=== PATIENT | female | born 1990 | race Caucasian/White ===

== ENCOUNTER 2020-03-07 06:46 | Day surgery (SDC) | payer BC ==
[~2020-03-07 06:46] MED LIST: BACITRACIN 50,000 UNIT VIAL IR ONE; CELECOXIB 200 MG CAP PO NR; GABAPENTIN 300 MG CAP PO NR; LACTATED RINGERS 1,000 ML IV SCH; MAGNESIUM OXIDE 400 MG TAB PO SCH; MIDAZOLAM 2 MG/2 ML INJ IV NR; SODIUM CHLORIDE 0.9% IRR 1,500 ML BOTTLE IR ONE; VANCOMYCIN/NS 1 GM/250 ML 1 GM/250 ML BAG IV NR
[2020-03-07] MEDS ORDERED: VANCOMYCIN 1,500 MG in SODIUM CHLORIDE 0.9% 500 ML 500 ML IV SCH (08:30)
--- NOTE | 2020-03-07 08:49 | Anesthesia Consultation ---
Anesthesia Consult and Med Hx Date of service: 03/07/20 - Airway Anesthetic Teeth Evaluation: Good ROM Head & Neck: Adequate Mental/Hyoid Distance: Adequate Mallampati Class: Class I Intubation Access Assessment: Good - Pulmonary Exam CTA: Yes - Cardiac Exam Cardiac Exam: RRR - Pre-Operative Health Status ASA Pre-Surgery Classification: ASA2 Proposed Anesthetic Plan: General - Pulmonary Hx Smoking: No Hx Respiratory Symptoms: No - Cardiovascular System Hx Hypertension: No Hx Heart Attack/AMI: No - Central Nervous System CVA: No Hx Back Pain: Yes - Gastrointestinal Hx Gastroesophageal Reflux Disease: No - Endocrine Hx Renal Disease: No Hx Liver Disease: No Hx Insulin Dependent Diabetes: No Hx Non-Insulin Dependent Diabetes: No Hx Thyroid Disease: No - Other Systems Hx Alcohol Use: Yes Hx Obesity: Yes (BMI 39) - Additional Comments Anesthesia Medical History Comments: No hx anesthetic complications.
--- NOTE | 2020-03-07 08:49 | Anesthesia Day of Surgery ---
Anesthesia Day of Surgery - Day of Surgery Patient Examined: Yes Patient H&P Reviewed: Yes Patient is NPO: Yes
[2020-03-07] MEDS: SCOPOLAMINE TRANSDERMAL PATCH 72 HR TD NR ×2 (09:18→18:45)
[2020-03-07] MEDS ORDERED: BACITRACIN 50,000 UNIT VIAL ONE (12:17)
[2020-03-07] MEDS ORDERED: LIDOCAINE 1%/EPINEPHRINE 1:100,000 VIAL (20 ML) INFILTRATI ONE ×2 (12:17→13:15)
[2020-03-07] MEDS ORDERED: SODIUM CHLORIDE P/F VIAL 10 ML 10 ML ONE (12:18)
[2020-03-07] MEDS ORDERED: ROCURONIUM 50 MG/5 ML INJ IV ONE (12:20)
[2020-03-07] MEDS ORDERED: LIDOCAINE MPF (2%) 20 MG/1 ML VIAL 5 ML ONE (12:20)
[2020-03-07] MEDS ORDERED: propofoL 200 MG/20 ML VIAL IV ONE (12:20)
[2020-03-07] MEDS ORDERED: fentaNYL 100 MCG/2 ML INJ ONE (12:20)
[2020-03-07] MEDS ORDERED: dexAMETHasone 20 MG/5 ML VIAL ONE (13:17)
[2020-03-07] MEDS ORDERED: ONDANSETRON 4 MG/2 ML INJ ONE ×2 (13:18→18:46)
[2020-03-07] MEDS ORDERED: HYDROmorphone 1 MG/1 ML INJ ONE (13:19)
[2020-03-07] MEDS ORDERED: LACTATED RINGERS 1,000 ML ONE (14:11)
[2020-03-07] MEDS ORDERED: BACITRACIN 50,000 UNIT VIAL IR ONE (14:37)
[2020-03-07] MEDS ORDERED: SODIUM CHLORIDE 0.9% IRR 1,500 ML BOTTLE IR ONE (14:37)
[2020-03-07] MEDS ORDERED: NEOSTIGMINE 10MG/10 ML INJ MDV ONE (17:25)
[2020-03-07] MEDS ORDERED: GLYCOPYRROLATE 0.4 MG/2 ML INJ ONE (17:25)
[2020-03-07] MEDS: HYDROmorphone 1 MG/1 ML INJ IV PRN ×4 (17:50→18:20)
[2020-03-07] MEDS ORDERED: SCOPOLAMINE TRANSDERMAL PATCH 72 HR TD ONE (18:36)
[2020-03-07] MEDS ORDERED: ALBUMIN HUMAN 5% (25 GM/500 ML) INJ IV ONE (18:44)
[2020-03-07] MEDS ORDERED: ONDANSETRON 4 MG/2 ML INJ IV PRN (18:47)
--- NOTE | 2020-03-07 19:23 | Operative Report ---
Operative Report Operative Report: Preoperative Diagnosis: Symptomatic bilateral macromastia Post Operative Diagnosis: Same Procedure: Bilateral breast reduction Surgeon: Dr. Lorna Vega Spring Fitter Helper: VIKASH Last Anesthesia: General Specimens: Right and left breast tissue, excised EBL: 150cc Indications: This patient is a 29 year old female who presented with musculoskeletal complaints due to her large breasts. She was approved for breast reduction to alleviate her symptoms. The benefits and risks of surgery were discussed in detail with the patient who expressed her understanding. Informed consent was obtained. Procedure: After review of pertinent history and physical exam findings the patient was marked in preop holding and brought into the operating room and placed supine on the OR table. After induction of adequate general anesthesia the patient's chest was prepped and draped in the usual sterile surgical fashion. To begin, wright were refreshed and measurements double checked and we reduced the right breast as follows: A 9cm inferior pedicle was outlined and de-epithelialized save the nipple and areola complex, which was measured out using a 4.5cm diameter and left completely attached to the inferior pedicle. After this, following a Joseph pattern, skin incisions were made to elevate breast flaps superiorly and excise excess tissue on the medial and lateral aspect of the pedicle. Hemostasis was maintained with electrocautery. Saline solution with bacitracin was then used to irrigate the breast tissue and, satisfied with hemostasis and volume, we began to a 3-layered closure using 2-0 Monocryl and 3- 0 Monoderm sutures. The same procedure was performed on the left side, with tissue re-arrangement and excision based on an inferior pedicle being performed to preserve the nipple areolar complex and as much breast tissue as possible for symmetry. Tissue excised: 1.2kg right breast; 1.28kg on the left. Once all incisions were closed, they were sealed with Dermabond and dressed with Telfa and tegaderm dressings. This was followed by placement of a surgical bra. The patient was then awakened from general anesthesia and transferred to PACU in stable condition. There were no complications. All sponge needle and instrument counts were correct at the end of the case.
[2020-03-07 19:44] VITALS: BP 105/65
== END 2020-03-07 20:30 | disposition home or self-care (01) ==
LOC: OR 06:46
PROVIDERS: ATTEND Plastic Surgery
DX: N62 Hypertrophy of breast (principal); E66.9 Obesity, unspecified; Z72.89 Other problems related to lifestyle; Z88.0 Allergy status to penicillin; Z83.3 Family history of diabetes mellitus; Z80.3 Family history of malignant neoplasm of breast; Z68.39 Body mass index [BMI] 39.0-39.9, adult
CPT/HCPCS: 19318; 81025; 88305; J1100; J1170; J2250; J2405; J2704; J2710; J3010; J3370; J7040; J7120; P9045

== ENCOUNTER 2020-06-07 19:14 | Emergency (ER) | payer SELFPAY ==
[2020-06-07 20:01] VITALS: BP 129/78
== END 2020-06-07 20:05 | disposition left against medical advice (07) ==
LOC: ED 19:14
DX: R50.9 Fever, unspecified (principal); Z53.21 Procedure and treatment not carried out due to patient leaving prior to being seen by health care provider

== ENCOUNTER 2020-06-21 06:18 | Emergency (ER) | payer MEDICAID ==
--- NOTE | 2020-06-21 08:36 | XRay Report ---
LEFT ANKLE 3 VIEWS INDICATION: injury. COMPARISON: None. IMPRESSION: There is diffuse soft tissue swelling. No acute osseous injury or joint pathology is de tected. Small plantar spur is noted. Signer Name: Crescencio Sommer Jr, MD Signed: 06/21/2020 8:32 AM Workstation Name: [id number]
[2020-06-21] MEDS ORDERED: IBUPROFEN 800 MG TAB PO ONE (08:43)
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
[2020-06-21 19:02] VITALS: BP 108/60
== END 2020-06-21 09:52 | disposition home or self-care (01) ==
LOC: ED 06:18
DX: S93.402A Sprain of unspecified ligament of left ankle, initial encounter (principal); M19.91 Primary osteoarthritis, unspecified site; J45.909 Unspecified asthma, uncomplicated; Z98.890 Other specified postprocedural states; Z79.1 Long term (current) use of non-steroidal anti-inflammatories (NSAID); Z79.899 Other long term (current) drug therapy; Z88.0 Allergy status to penicillin; X58.XXXA Exposure to other specified factors, initial encounter; Y93.89 Activity, other specified; Y92.009 Unspecified place in unspecified non-institutional (private) residence as the place of occurrence of the external cause; Y99.8 Other external cause status

== ENCOUNTER 2021-04-21 09:49 | Emergency (ER) | payer OTHER, MEDICAID ==
[2021-04-21 10:31] VITALS: BP 124/76
--- NOTE | 2021-04-21 11:11 | Emergency Department Report ---
Chief Complaint: Extremity Injury, Lower Stated Complaint: FOOT PAIN - HPI History of Present Illness: 30-year-old morbid obese female presents to the emergency room brought in by [facility] for homelessness and was found behind the [employer] [address]. Patient complains of bilateral foot pain extremity edema and foot swelling. Patient states that she has back pain which is all chronic. Patient states that she is currently on pain medicine of ibuprofen and Bactrim for for chronic back pain. Patient denies any recent injury. - Exam Vital Signs: Vital Signs 04/21/21 10:28 Temperature 97.6 F Pulse Rate 100 H Respiratory 20 Rate Blood Pressure 124/76 O2 Sat by Pulse 100 Oximetry Physical Exam: General: Awake, appropriately interactive, no acute distress. Neck: Supple. Full range of motion intact. Cardiovascular: Normal peripheral perfusion. Pulmonary: No respiratory distress. Patient is speaking normally without use of accessory muscles. Skin: No apparent rashes or lesions. Neurological: No facial asymmetry. Speech is clear. Follows commands. Patient is alert and oriented. Musculoskeletal: Full range of motion, no crepitus. No tenderness to palpate nonerythematous no edema test appreciated. Distal neurovascular and motor/sensory function is intact. Psych: Cooperative. Appropriate mood and affect. MSE screening note: Focused history and physical exam performed. Due to findings the following was ordered: 30-year-old morbid obese female presents to the emergency room brought in by [facility] for homelessness and was [facility] [address] Patient complains of bilateral foot pain extremity edema and foot swelling. Patient states that she has back pain which is all chronic. Patient states that she is currently on pain medicine of ibuprofen and Bactrim for for chronic back pain. Patient denies any recent injury. Discussed with patient that we do not treat chronic pain that she needs to follow-up with her primary care provider. I discussed with patient to keep her appointment on Thursday which she states she has scheduled. Discussed with patient to continue her for pain medication increase her fluid intake. ED Disposition for MSE Disposition: TO HOME OR SELFCARE Is pt being admited?: No Does the pt Need Aspirin: No Condition: Stable Instructions: Chronic Back Pain, [id number] Additional Instructions: Continue with your pain medication and Bactrim as prescribed by your doctor. Increase your fluid intake. Keep your appointment with your primary care provider on Thursday. Referrals: Your, primary care provider [Other] - 3-5 Days [facility] [Provider Group] - 3-5 Days Time of Disposition: 11:12
== END 2021-04-21 11:32 | disposition home or self-care (01) ==
LOC: ED 09:49
DX: M79.672 Pain in left foot (principal); M79.671 Pain in right foot; Z59.0 Homelessness
CPT/HCPCS: 99283